=== PATIENT | female | born 1950 | race Caucasian/White ===

== ENCOUNTER → 2018-07-20 19:00 | Outpatient (REF) | payer MEDICARE, MEDICAID, SELFPAY ==
[2018-07-20 19:26] LABS: Alanine Aminotransferase 31 IU/L (9-52); Albumin 4.5 g/dL (3.5-5.0); Albumin Globulin Ratio 1.5 (1.0-2.8); Alkaline Phosphatase 137 U/L (38-126); Aspartate Aminotransferase 25 IU/L (14-36); BUN Creatinine Ratio 38.6 (6-22); Bilirubin Total 0.6 mg/dL (0.2-1.3); Blood Urea Nitrogen 27 mg/dL (7-17); Calcium 10.2 mg/dL (8.4-10.2); Carbon Dioxide 25 mmol/L (22-32); Chloride 105 mmol/L (98-107); Cholesterol 311 mg/dL (140-199); Estimated Glomerular Filt Rate > 60.0 mL/min (>60); Glucose 93 mg/dL (80-110); HDL Cholesterol 102 mg/dL (40-60); HEMOLYSIS < 15 (0-50); LDL Cholesterol Calculated 193 mg/dL (<100); Potassium 4.3 mmol/L (3.4-5.1); Sodium 139 mmol/L (137-145); Total Protein 7.5 g/dL (6.3-8.2); Triglycerides 79 mg/dL (35-150)
[2018-07-20 19:30] LABS: High Sensitivity CRP - Cardiac 1.6 mg/L (1.0-3.0)
[2018-07-20 19:38] LABS: Add Manual Diff / Slide Review NO; Basophils Absolute Auto 100 /uL (0-100); Basophils Percent Auto 0.9 % (0-2); Eosinophils Absolute Auto 200 /uL (0-450); Eosinophils Percent Auto 2.6 % (2-4); Hematocrit 45.8 % (36-46); Hemoglobin 15.1 g/dL (12.0-16.0); Lymphocytes Absolute Auto 2100 /uL (1100-4500); Lymphocytes Percent Auto 28.3 % (25-40); Mean Corpuscular HGB Conc 33.1 % (30-36); Mean Corpuscular Hemoglobin 32.2 PG (26-34); Mean Corpuscular Volume 97.3 fL (80-100); Monocytes Absolute Auto 700 /uL (0-900); Monocytes Percent Auto 9.8 % (3-14); Neutrophils Absolute Auto 4200 /uL (1500-7000); Neutrophils Percent Auto 58.4 % (50-75); Platelet Count 230 X10^3/uL (150-400); Red Cell Distribution Width 14.8 % (11.6-14.8); White Blood Cell Count 7.2 X10^3/uL (4.5-11.0)
[2018-07-20 19:44] LABS: Free T3, Triiodothyronine Free 2.52 pg/mL (2.77-5.27); Free T4, Direct Thyroxine 1.09 ng/dL (0.78-2.19)
[2018-07-20 19:57] LABS: Thyroid Stimulating Hormone 0.16 uIU/mL (0.47-4.68)
[2018-07-23 14:19] LABS: Parathyroid Hormone Int 136 pg/mL (14-64)
== END ==
LOC: LAB 19:00
PROVIDERS: PCP Family Medicine Geriatric Medicine; Visit Provider Family Medicine Geriatric Medicine
DX: M85.80 Other specified disorders of bone density and structure, unspecified site (principal); E21.0 Primary hyperparathyroidism; E06.3 Autoimmune thyroiditis; E78.5 Hyperlipidemia, unspecified; E21.2 Other hyperparathyroidism
CPT/HCPCS: 36415; 80053; 80061; 83970; 84439; 84443; 84481; 85025; 86140